=== PATIENT | male | born 1995 | race African-American/Black ===

== ENCOUNTER 2017-11-01 13:10 | Emergency (ER) | payer OTHER ==
[~2017-11-01] VITALS: Ht 172.7 cm; Wt 74.8 kg
[~2017-11-01 13:10] MED LIST: CYCL5TAB PO
[2017-11-01 13:41] VITALS: BP 142/77
[2017-11-01] MEDS ORDERED: AMOX500T PO (13:45)
--- NOTE | 2017-11-01 13:46 | PHYS DOC ---
Past Medical History Past Medical History: No Pertinent History Past Surgical History: No Surgical History Alcohol Use: None Drug Use: None Adult General Chief Complaint Chief Complaint: SORE THROAT HPI HPI Patient is a 22 year old male who presents with sinus congestion, bilateral ear pain, sore throat, muffled voice, swollen tonsils, x 3 days. Patient has a fever of 102.4. Patient has no know allergies. Patient is alert and oriented. Patient is in no respiratory distress. Review of Systems Review of Systems Constitutional: Fever and chills [] Eyes: Denies change in visual acuity, redness, or eye pain [] HENT: Nasal congestion and sore throat [] Respiratory: Cough. Denies shortness of breath [] Cardiovascular: No additional information not addressed in HPI [] GI: Denies abdominal pain, nausea, vomiting, bloody stools or diarrhea [] : Denies dysuria or hematuria [] Musculoskeletal: Denies back pain or joint pain [] Integument: Denies rash or skin lesions [] Neurologic: Denies headache, focal weakness or sensory changes [] Endocrine: Denies polyuria or polydipsia [] All other systems were reviewed and found to be within normal limits, except as documented in this note. Current Medications Current Medications Current Medications Medications (Trade) Dose Ordered Sig/Angy Start Time Stop Time Status Last Admin Dose Admin Dexamethasone Sodium Phosphate (Decadron) 8 mg 1X ONCE 11/01/17 14:15 11/01/17 14:16 DC 11/01/17 14:15 8 MG Ibuprofen (Motrin) 600 mg 1X ONCE 11/01/17 14:00 11/01/17 14:01 DC 11/01/17 14:03 600 MG Allergies Allergies Allergies Coded Allergies Type Severity Reaction Last Updated Verified No Known Drug Allergies 03/08/15 No Physical Exam Physical Exam Constitutional: Well developed, well nourished, no acute distress, non-toxic appearance. [] HENT: Normocephalic, atraumatic, bilateral external ears normal, oropharynx moist, Throat red with oral exudates present , nasal congestion. [] Eyes: PERRLA, EOMI, conjunctiva normal, no discharge. [] Neck: Normal range of motion, no tenderness, supple, no stridor. [] Cardiovascular:Heart rate regular rhythm, no murmur [] Lungs & Thorax: Bilateral breath sounds clear to auscultation [] Abdomen: Bowel sounds normal, soft, no tenderness, no masses, no pulsatile masses. [] Skin: Warm, dry, no erythema, no rash. [] Back: No tenderness, no CVA tenderness. [] Extremities: No tenderness, no cyanosis, no clubbing, ROM intact, no edema. [] Neurologic: Alert and oriented X 3, normal motor function, normal sensory function, no focal deficits noted. [] Psychologic: Affect normal, judgement normal, mood normal. [] Current Patient Data Vital Signs Vital Signs Date Time Temp Pulse Resp B/P (MAP) Pulse Ox O2 Delivery O2 Flow Rate FiO2 11/01/17 13:41 102.4 93 16 142/77 (98) 98 Room Air 102.4 EKG EKG [] Radiology/Procedures Radiology/Procedures [] Course & Med Decision Making Course & Med Decision Making Patient strep is negative. Patient has throat pain with exudates. Lungs clear to auscultation. No cervical lymph nodes palpable. Patient has a muffled voice but without drooling or soa. Bilateral tympanics are foggy and white. Patient is given Decadron IM and told to take with Ibuprofen for fever or pain. Patient rates his pain a 8/10. Patient is sent home with Amoxicillin 500mg BID x 10 days. Patient to follow up with his primary care. [] Dragon Disclaimer Dragon Disclaimer This electronic medical record was generated, in whole or in part, using a voice recognition dictation system. Departure Departure Impression: Primary Impression: Strep throat Disposition: 01 HOME, SELF-CARE Condition: STABLE Referrals: NO PCP (PCP) Patient Instructions: Strep Throat Additional Instructions: Follow up with your primary care provider. Take medications as prescribed. Take Ibuprofen for pain or fever. Scripts Amoxicillin (AMOXICILLIN) 500 Mg Tablet 1 TAB PO BID for 10 Days, #20 TAB Prov: RAHUL CERNA APRN 11/01/17 RAHUL CERNA APRN Nov 01, 2017 13:46
[2017-11-01] MEDS ORDERED: IBUPROFEN 600 MG TABLET. PO ONE (14:00)
[2017-11-01] MEDS ORDERED: DEXAMETHASONE SOD PHOS 20 MG/5 ML VIAL. IV ONE (14:00)
[2017-11-01] MEDS ORDERED: DEXAMETHASONE SOD PHOS 20 MG/5 ML VIAL. IM ONE (14:15)
== END 2017-11-01 14:20 | disposition home or self-care (01) ==
LOC: ER 13:10
DX: J02.0 Streptococcal pharyngitis (principal); B95.5 Unspecified streptococcus as the cause of diseases classified elsewhere; H92.09 Otalgia, unspecified ear
CPT/HCPCS: 87070; 87880; 99284; J1100

== ENCOUNTER 2019-02-09 17:35 | Emergency (ER) | payer SELFPAY ==
[~2019-02-09] VITALS: Ht 175.3 cm; Wt 81.6 kg
[~2019-02-09 17:35] MED LIST changes: +AMOX500T PO
[2019-02-09 18:37] VITALS: BP 165/90
[2019-02-09] MEDS ORDERED: IBUPROFEN 200 MG TABLET. PO ONE (19:30)
--- NOTE | 2019-02-09 20:03 | RAD ---
RIBS RIGHT AND PA CHEST History: Fall. Technique: PA view the chest and 3 additional views of the right ribs. Comparison: None. Findings: No consultation or pleural effusion. Normal heart size. No pneumothorax. No displaced rib fractures. Impression: 1. No acute cardiopulmonary process. No displaced rib fractures. Electronically signed by: Parish Cool DO (02/09/2019 8:01 PM) [facility]
[2019-02-09] MEDS ORDERED: IBUP-1007 PO (20:12)
--- NOTE | 2019-02-09 20:12 | PHYS DOC ---
Past Medical History Past Medical History: No Pertinent History Past Surgical History: No Surgical History Alcohol Use: None Drug Use: None Adult General Chief Complaint Chief Complaint: RIB PAIN HPI HPI Patient is a 23 year old male who presents with states on Friday he was lying on his [place] and he tripped over the dog and fell on his right side. Patient complains of right rib pain. Patient rates his pain a 7 out of 10. Patient states it hurts more when taking a deep breath or moving. Patient states that he has been soaking in Epsom salts to try to see if that would help but it has not. Patient states the swelling has gotten better. Review of Systems Review of Systems Musculoskeletal:Right rib pain. Denies back pain or joint pain [] All other systems were reviewed and found to be within normal limits, except as documented in this note. Current Medications Current Medications Current Medications Medications (Trade) Dose Ordered Sig/Angy Start Time Stop Time Status Last Admin Dose Admin Ibuprofen (Motrin) 600 mg 1X ONCE 02/09/19 19:30 02/09/19 19:34 DC 02/09/19 19:50 600 MG Allergies Allergies Allergies Coded Allergies Type Severity Reaction Last Updated Verified No Known Drug Allergies 03/08/15 No Physical Exam Physical Exam Constitutional: Well developed, well nourished, no acute distress, non-toxic appearance. [] HENT: Normocephalic, atraumatic, bilateral external ears normal, oropharynx moist, no oral exudates, nose normal. [] Eyes: PERRLA, EOMI, conjunctiva normal, no discharge. [] Neck: Normal range of motion, no tenderness, supple, no stridor. [] Cardiovascular:Heart rate regular rhythm, no murmur [] Lungs & Thorax: Bilateral breath sounds clear to auscultation [] Abdomen: Bowel sounds normal, soft, no tenderness, no masses, no pulsatile masses. [] Skin: Warm, dry, no erythema, no rash. [] Back: Right rib tenderness tenderness, no CVA tenderness. [] Extremities: No tenderness, no cyanosis, no clubbing, ROM intact, no edema. [] Neurologic: Alert and oriented X 3, normal motor function, normal sensory function, no focal deficits noted. [] Psychologic: Affect normal, judgement normal, mood normal. [] Current Patient Data Vital Signs Vital Signs Date Time Temp Pulse Resp B/P (MAP) Pulse Ox O2 Delivery O2 Flow Rate FiO2 02/09/19 18:37 99.0 74 16 165/90 (115) 97 Room Air 99.0 EKG EKG [] Radiology/Procedures Radiology/Procedures [] Impressions: [facility] [address] [place] [address] IMAGING REPORT Signed PATIENT: MAXIMO SALAMANCA ACCOUNT: [id number] : 1995 LOCATION: ER AGE: 23 SEX: M EXAM STATUS: REG ER ORD. PHYSICIAN: RAHUL CERNA APRN REASON: FALL PROCEDURE: RIBS RIGHT AND PA CHEST RIBS RIGHT AND PA CHEST History: Fall. Technique: PA view the chest and 3 additional views of the right ribs. Comparison: None. Findings: No consultation or pleural effusion. Normal heart size. No pneumothorax. No displaced rib fractures. Impression: 1. No acute cardiopulmonary process. No displaced rib fractures. Electronically signed by: Parish Cool DO (02/09/2019 8:01 PM) [facility] DICTATED and SIGNED BY: PARISH COOL DO DATE: 02/09/192000 Course & Med Decision Making Course & Med Decision Making Right mid rib tenderness with palpation. There is no crepitus. No deformity is felt. All lung lobes are clear to auscultation. Vital signs within normal limits. Ambulatory with a steady gait. Skin pink warm and dry. Alert and oriented. Speaks in full clear sentences. No extremity edema. There is no swelling or bruising seen. X-ray shows no acute findings. Patient is given an incentive spirometer with education. Dragon Disclaimer Dragon Disclaimer This electronic medical record was generated, in whole or in part, using a voice recognition dictation system. Departure Departure Impression: Primary Impression: Rib pain Additional Impression: Fall Disposition: 01 HOME, SELF-CARE Condition: STABLE Referrals: NO PCP (PCP) Patient Instructions: Rib Contusion Additional Instructions: Follow up with primary care provider. Take Ibuprofen for pain. Use Incentive Spirometry as educated. Scripts Ibuprofen (IBUPROFEN) 600 Mg Tablet 600 MG PO PRN Q6HRS PRN for INFLAMMATION, #20 TAB Prov: RAHUL CERNA APRN 02/09/19 Problem Qualifiers Additional Impression: Fall Encounter type: initial encounter Qualified Codes: W19.XXXA - Unspecified fall, initial encounter RAHUL CERNA APRN Feb 09, 2019 20:12
== END 2019-02-09 20:24 | disposition home or self-care (01) ==
LOC: ER 17:35
DX: R07.81 Pleurodynia (principal); G89.11 Acute pain due to trauma; W01.0XXA Fall on same level from slipping, tripping and stumbling without subsequent striking against object, initial encounter; Y93.89 Activity, other specified; Y92.89 Other specified places as the place of occurrence of the external cause; Y99.8 Other external cause status
CPT/HCPCS: 71101; 99284